=== PATIENT | male | born 1955 ===

== ENCOUNTER 2018-08-13 18:18 | Emergency (ER) | payer OTHER ==
[~2018-08-13] VITALS: Ht 172.7 cm; Wt 68.0 kg
[2018-08-13] MEDS ORDERED: METOPROLOL SUCC50 MG (19:04)
[2018-08-13] MEDS ORDERED: LOSARTAN-HCTZ1 EAC1 (19:04)
[2018-08-13] MEDS ORDERED: METFORMIN HCL500 MG (19:04)
[2018-08-13] MEDS ORDERED: NEURONTIN600 MG (19:05)
== END 2018-08-13 22:14 | disposition home or self-care (01) ==
LOC: ER 18:18
DX: M54.41 Lumbago with sciatica, right side (principal)

== ENCOUNTER 2018-09-02 16:06 | Emergency (ER) | payer OTHER ==
[~2018-09-02] VITALS: Ht 172.7 cm; Wt 69.4 kg
[~2018-09-02 16:06] MED LIST: LOSARTAN-HCTZ1 EAC1; METFORMIN HCL500 MG; METOPROLOL SUCC50 MG; NEURONTIN600 MG
[2018-09-02] MEDS ORDERED: LANTUS SOL100 UNIT/1 SUBCUTANEO (16:33)
[2018-09-03] MEDS ORDERED: MECLIZINE HCL25 MG PO (00:15)
== END 2018-09-03 00:24 | disposition home or self-care (01) ==
LOC: ER 16:06
DX: H81.13 Benign paroxysmal vertigo, bilateral (principal)

== ENCOUNTER 2018-09-10 11:06 | Emergency (ER) | payer OTHER ==
[~2018-09-10] VITALS: Ht 172.7 cm; Wt 69.4 kg
[~2018-09-10 11:06] MED LIST changes: +LANTUS SOL100 UNIT/1 SUBCUTANEO; +MECLIZINE HCL25 MG PO
== END 2018-09-10 15:21 | disposition home or self-care (01) ==
LOC: ER 11:06
DX: R42 Dizziness and giddiness (principal); E11.9 Type 2 diabetes mellitus without complications

== ENCOUNTER 2020-07-20 20:29 | Emergency (ER) | payer OTHER ==
[~2020-07-20] VITALS: Ht 172.7 cm; Wt 63.5 kg
== END 2020-07-20 22:31 | disposition home or self-care (01) ==
LOC: ER 20:29
DX: E11.65 Type 2 diabetes mellitus with hyperglycemia (principal); Z20.828 Contact with and (suspected) exposure to other viral communicable diseases